=== PATIENT | male | born 1990 | race Two or more races ===

== ENCOUNTER 2018-02-20 13:57 | Emergency (ER) | payer OTHER ==
--- NOTE | 2018-02-20 15:51 | ER Document Report ---
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 [place] He is not taking antibiotics. His states that she cannot help him do this. Associated Symptoms: None Exacerbated by: Denies Relieved by: Denies Similar symptoms previously: Yes Recently seen / treated by doctor: No - ROS ROS below otherwise negative: Yes Systems Reviewed and Negative: Yes All other systems reviewed and negative Past Medical History - General Information source: Patient - Social History Smoking Status: Never Smoker Lives with: Spouse/Significant other Family History: None - Medical History Medical History: Negative Vertical Provider Document - CONSTITUTIONAL Agree With Documented VS: Yes Exam Limitations: No Limitations - DERM Integumentary: Abscess - Posterior right ear abscess that has been incised with purulent drainage and there is packing in it. The packing was removed the wound was cleansed and a small piece of packing was replaced. Course - Vital Signs Vital signs: Temp Pulse Resp BP Pulse Ox 97.2 F 71 14 129/64 H 97 02/20/18 14:01 02/20/18 14:01 02/20/18 14:01 02/20/18 14:01 02/20/18 14:01 Discharge - Discharge Clinical Impression: Posterior rt ear abscess packing change Condition: Good Disposition: HOME, SELF-CARE Instructions: Abscess ([facility]) Additional Instructions: Wound culture pending at [facility] Shower with antibacterial soap and water daily and clean the wound in the shower Dry dressing [place]
[2018-02-20 16:00] VITALS: BP 132/62
== END 2018-02-20 15:55 | disposition home or self-care (01) ==
LOC: ER 13:57
DX: H60.01 Abscess of right external ear (principal)
CPT/HCPCS: 87070; 87077; 87186; 87205; 99282